=== PATIENT | male | born 1985 | race Caucasian/White ===

== ENCOUNTER 2022-11-28 06:55 | Day surgery (SDC) | payer BC, SELFPAY ==
[2022-11-26 10:51] VITALS: BMI 32.5
[2022-11-28 07:14] VITALS: BP 139/81; PULSE 65; RESP 18; TEMP 36.3; O2SAT 98
[2022-11-28] MEDS: sodium chloride 0.9% 1,000 ML 30 ML IV (07:22)
--- NOTE | 2022-11-28 08:32 | PM.HP ---
Providers/Chief Complaint Chief Complaint: K21.9, K92.1, Z86.010, K52.9 History of Present Illness Silvio Cardenas is a 37 year old male here for EGD and colonoscopy Medications/Allergies Home Medications Medication Instructions Recorded Confirmed Last Taken Type allopurinol 100 mg tablet 100 mg PO DAILY 10/22/22 11/26/22 11/27/22 History pantoprazole 40 mg tablet,delayed 40 mg PO BID 6 weeks #84 tabs 10/22/22 11/26/22 11/27/22 Rx release (Protonix) ibuprofen 600 mg tablet 600 mg PO Q8H PRN pain #60 tabs 11/01/22 11/26/22 11/27/22 Rx Allergies Allergy/AdvReac Type Severity Reaction Status Date / Time No Known Allergies Allergy Unverified 11/28/22 07:12 PFSH Acute PFSH: Medical History Gout Surgical History History of nasal septoplasty History of tonsillectomy Vitals/I&O/Wt Last Vital Signs Temp 97.4 F L 11/28/22 07:14 Pulse 65 11/28/22 07:14 Resp 18 11/28/22 07:14 BP 139/81 11/28/22 07:14 Pulse Ox 98 11/28/22 07:14 O2 Del Method Room Air 11/28/22 07:14 Weight last 48 hrs Weight 220 lb A&P Assessment and plan (1) Chronic diarrhea: (2) Hematochezia: (3) GERD (gastroesophageal reflux disease): Plan EGD and colonoscopy Attestations Medical Necessity Statement*: Home Coding Level of Care Code Acute Code for Chg Fwd Diagnoses Chronic diarrhea K52.9 Hematochezia K92.1 GERD (gastroesophageal reflux disease) K21.9
[2022-11-28 08:59] VITALS: BP 85/47; PULSE 61; RESP 20; TEMP 36.2; O2SAT 93
--- NOTE | 2022-11-28 09:03 | ANE.PACU2 ---
Inpatient post-anesthesia follow up: Airway intact: Yes Vital signs: Temperature 97.4 F Pulse Rate 65 Respiratory Rate 18 Blood Pressure 139/81 Pulse Oximetry 98 Oxygen Delivery Me thod Room Air Oxygen Flow Rate Fraction of Inspir ed Oxygen Hydration adequate: Yes Nausea and vomiting: No Pain level: 1 Mental status: Baseline
[2022-11-28 09:10] VITALS: BP 86/49; PULSE 57; RESP 18; O2SAT 94
[2022-11-28 09:18] VITALS: BP 101/83; PULSE 70; RESP 18; O2SAT 96
[2022-11-28 09:30] VITALS: BP 128/63; PULSE 59; RESP 18; O2SAT 97
--- NOTE | 2022-11-28 15:31 | P.ANESASSM_ITS ---
Pre-Anesthetic Assessment Height/Weight: Height 1.75 m Weight 99.79 kg Temp Pulse Resp BP Pulse Ox O2 Del Method 97.2 F L 59 L 18 128/63 97 Room Air 11/28/22 08:59 11/28/22 09:30 11/28/22 09:30 11/28/22 09:30 11/28/22 09:30 11/28/22 09:30 Operation Date: 11/28/22 08:30 Proposed Procedures p [id number] egd [id number] colon K21.9 K92.1,Z86.010 K52.9(Not Applicable) - Irvin Bhatia DO s Colonoscopy(Not Applicable) - Irvin Bhatia DO Familial anesthetic complications: none Was Beta Gayle taken within 24 hours: N/A Was Clonidine taken within 24 hours: N/A Last intake: Intake Last Liquid Date 11/27/22 Last Liquid Time 22:00 Last Solid Date 11/26/22 Last Solid Time 21:00 Social No alcohol and No tobacco Exam alert, oriented x 3, clear to auscultation bilaterally and regular rate & rhythm Airway Submandibular: within normal limits Mallampati: Class II Dentition: full Comments: Comments: [facility] Gastroesophageal Reflux Disease Metabolic Morbid Obesity [facility] [place] Gout Anesthetic Plan ASA status: 2 Anesthesia: MAC Medications/Allergies Home Medications Medication Instructions Recorded Confirmed Last Taken Type allopurinol 100 mg tablet 100 mg PO DAILY 10/22/22 11/26/22 11/27/22 History pantoprazole 40 mg tablet,delayed 40 mg PO BID 6 weeks #84 tabs 10/22/22 11/26/22 11/27/22 Rx release (Protonix) ibuprofen 600 mg tablet 600 mg PO Q8H PRN pain #60 tabs 11/01/22 11/26/22 11/27/22 Rx hydrocortisone 2.5 % topical cream 1 applic GA QID 3 weeks #30 grams 11/28/22 Unknown Rx with perineal applicator (Proctosol HC) Allergies Allergy/AdvReac Type Severity Reaction Status Date / Time No Known Allergies Allergy Unverified 11/28/22 07:12 [facility] Anesthesia Medical History Gout Surgical History History of nasal septoplasty History of tonsillectomy Data Anesthesia Microbiology 11/28/22 08:58 Stool Lactoferrin - Final Stool Occult Blood (FIT) - Final Cardiac Studies: No Data to Display
== END 2022-11-28 10:00 | disposition home or self-care (01) ==
PROVIDERS: Visit Provider Surgery
PROC: 0DJ08ZZ Inspection of Upper Intestinal Tract, Via Natural or Artificial Opening Endoscopic (ICD-10-PCS; CPT 43235; principal; 2022-11-28 08:30)
PROC: 0DJD8ZZ Inspection of Lower Intestinal Tract, Via Natural or Artificial Opening Endoscopic (ICD-10-PCS; CPT 45378; 2022-11-28 08:30)
DX: K57.30 Diverticulosis of large intestine without perforation or abscess without bleeding (principal); K62.6 Ulcer of anus and rectum; K64.4 Residual hemorrhoidal skin tags; K29.60 Other gastritis without bleeding; K29.50 Unspecified chronic gastritis without bleeding; K21.9 Gastro-esophageal reflux disease without esophagitis; E66.01 Morbid (severe) obesity due to excess calories; Z68.32 Body mass index [BMI] 32.0-32.9, adult; Z86.010 Personal history of colon polyps
CPT/HCPCS: 43239; 45380; 82274; 83630; 87493; 87506; 88305; 88342; J2704; J7030

== ENCOUNTER → 2024-04-14 10:37 | Outpatient (BNVA) | payer BC, SELFPAY | PROVIDERS: PCP Nurse Practitioner Family; Visit Provider Emergency Medicine | DX: M79.671 Pain in right foot (principal) | CPT/HCPCS: 73630 ==